=== PATIENT | female | born 1935 | race Caucasian/White ===

== ENCOUNTER 2016-09-27 23:57 | Emergency (ER) | payer OTHER, MEDICAID ==
[~2016-09-27] VITALS: Ht 162.6 cm; Wt 83.5 kg
[~2016-09-27 23:57] MED LIST: CHOL2000 PO; CYAN250L PO; FURO-150 PO; LABE100T PO; LETR2.5T3 PO; LIP10 PO; NITSL SL; OLME20TA14 PO; POTA-118 PO; SIMV20TA6 PO; SYN75 PO; VITA-285 PO
[2016-09-28 00:22] VITALS: BP 136/70; PULSE 61; RESP 18; TEMP 97.8; O2SAT 95
--- NOTE | 2016-09-28 00:22 | NUR ---
Patient to ER bed 8 to gown for evaluation. Side rails up.
--- NOTE | 2016-09-28 00:30 | NUR ---
pt in bed 8 with c/o abdominal and back pain, Dr Quinonez aware.
--- NOTE | 2016-09-28 00:32 | NUR ---
ER at bedside examining patient.
[2016-09-28 01:08] LABS: BASOPHILS % (AUTO) 0.7 % (0.0-2.0); EOSINOPHILS # (AUTO) 0.2 K/uL (0.0-0.4); EOSINOPHILS % (AUTO) 6.2 % (0.0-4.0); HEMATOCRIT 30.8 % (36-48); HEMOGLOBIN 10.5 g/dL (12.0-16.0); LYMPHOCYTES % (AUTO) 33.2 % (20.5-51.5); MEAN CORPUSCULAR HEMOGLOBIN 33 pg (27-31); MEAN CORPUSCULAR HGB CONC 34 % (32-36); MEAN CORPUSCULAR VOLUME 98 fL (79.0-98.0); MONOCYTES # (AUTO) 0.2 K/uL (0.0-1.0); NEUTROPHILS # (AUTO) 1.7 K/uL (1.8-7.7); NEUTROPHILS % (AUTO) 53.9 % (40.0-70.0); PLATELET COUNT (AUTO) 211 K/uL (130-430); RED BLOOD CELL COUNT(AUTO) 3.13 MIL/uL (4.2-6.2); RED CELL DISTRIBUTION WIDTH 15.4 % (9.0-15.0); WHITE BLOOD COUNT (AUTO) 3.1 K/uL (4.8-10.8)
[2016-09-28 01:10] LABS: ANION GAP 3 (5-15); CALCIUM 9.3 mg/dL (8.4-11.0); CHLORIDE 99 mmol/L (98-107); CREATININE 3.27 mg/dL (0.55-1.30); GLUCOSE 114 mg/dL (70-99); POTASSIUM 4.4 mmol/L (3.5-5.1); SODIUM SERUM 131 mmol/L (136-145); UREA NITROGEN, BLOOD 37 mg/dL (8-21)
[2016-09-28 01:13] LABS: ALANINE AMINOTRANSFERASE 36 U/L (12-78); ALBUMIN 3.5 g/dL (3.4-4.8); ASPARTATE AMINOTRANSFERASE 81 U/L (10-37); INR 0.9 (0.8-1.2); LIPASE 270 U/L (73-393); PROTHROMBIN TIME 10.3 SECS (9.5-12.5); TOTAL BILIRUBIN 0.7 mg/dL (0.0-1.0); TOTAL PROTEIN, SERUM 8.5 g/dL (6.4-8.3)
[2016-09-28 01:30] LABS: BILIRUBIN,URINE NEGATIVE (NEGATIVE); BLOOD, URINE 2+ (NEGATIVE); COLOR,URINE YELLOW (YELLOW); GLUCOSE,URINE NEGATIVE (NEGATIVE); KETONES,URINE NEGATIVE (NEGATIVE); LEUKOCYTE ESTERASE ,URINE 3+ (NEGATIVE); NITRITE, URINE NEGATIVE (NEGATIVE); PH,URINE 6.5 (5.0-8.0); PROTEIN URINE TRACE (NEGATIVE); UROBILINOGEN,URINE 0.2 (0.2-1.0)
--- NOTE | 2016-09-28 01:30 | NUR ---
Urine specimen collected . Results to be given to DEBBIE CASANOVA.
[2016-09-28 01:40] LABS: CLARITY/URINE HAZY (CLEAR)
[2016-09-28 01:42] LABS: BACTERIA,URINE MODERATE /HPF (None Seen); RBC,URINE 0-3 /HPF (0-3); WBC,URINE 20-50 /HPF (0-3)
[2016-09-28 01:43] LABS: MUCUS,URINE None Seen /LPF (None Seen)
[2016-09-28] MEDS ORDERED: HYDROcodone/ACETAMIN 5-325 MG TAB (NORCO/ VICODIN) PO ONE (03:00)
[2016-09-28 03:24] VITALS: BP 128/70; PULSE 89; RESP 18; TEMP 97.8; O2SAT 95
--- NOTE | 2016-09-28 03:34 | NUR ---
Patient given written and verbal discharge instructions and verbalizes understanding. ER MD discussed with patient the results and treatment provided. Patient in stable condition. ID arm band removed. Rx of cipro,norco given. Patient educated on pain management and to follow up with PMD. Pain Scale 0/10. Opportunity for questions provided and answered.
== END 2016-09-28 03:24 | disposition home or self-care (01) ==
LOC: SED 23:57
DX: N39.0 Urinary tract infection, site not specified (principal); I10 Essential (primary) hypertension; E03.9 Hypothyroidism, unspecified; Z85.3 Personal history of malignant neoplasm of breast; Z95.1 Presence of aortocoronary bypass graft; Z79.899 Other long term (current) drug therapy
CPT/HCPCS: 36415; 80053; 81000-TC; 83690-TC; 85025; 85610-TC; 85730-TC; 87086; 99285

== ENCOUNTER 2017-04-15 21:11 | Emergency (ER) | payer OTHER, MEDICAID ==
[~2017-04-15] VITALS: Ht 162.6 cm; Wt 91.2 kg
[~2017-04-15 21:11] MED LIST changes: -LABE100T PO; -SIMV20TA6 PO
[2017-04-15 21:45] VITALS: BP_SYST 123
[2017-04-15 22:34] LABS: BASOPHILS % (AUTO) 0.6 % (0.0-2.0); EOSINOPHILS # (AUTO) 0.2 K/uL (0.0-0.4); EOSINOPHILS % (AUTO) 4.2 % (0.0-4.0); HEMATOCRIT 26.7 % (36-48); HEMOGLOBIN 8.7 g/dL (12.0-16.0); LYMPHOCYTES % (AUTO) 23.3 % (20.5-51.5); MEAN CORPUSCULAR HEMOGLOBIN 35 pg (27-31); MEAN CORPUSCULAR HGB CONC 33 % (32-36); MEAN CORPUSCULAR VOLUME 106 fL (79.0-98.0); MONOCYTES # (AUTO) 0.4 K/uL (0.0-1.0); MONOCYTES % (AUTO) 10.4 % (1.7-9.3); NEUTROPHILS # (AUTO) 2.5 K/uL (1.8-7.7); NEUTROPHILS % (AUTO) 61.5 % (40.0-70.0); PLATELET COUNT (AUTO) 227 K/uL (130-430); RED BLOOD CELL COUNT(AUTO) 2.53 MIL/uL (4.2-6.2); RED CELL DISTRIBUTION WIDTH 13.5 % (9.0-15.0); WHITE BLOOD COUNT (AUTO) 4.1 K/uL (4.8-10.8)
[2017-04-15 22:44] LABS: ANION GAP 5 (5-15); CALCIUM 8.6 mg/dL (8.4-11.0); CHLORIDE 100 mmol/L (98-107); CREATININE 1.88 mg/dL (0.55-1.30); GLUCOSE 97 mg/dL (70-99); POTASSIUM 4.4 mmol/L (3.5-5.1); SODIUM SERUM 133 mmol/L (136-145); UREA NITROGEN, BLOOD 22 mg/dL (8-21)
[2017-04-15] MEDS ORDERED: NACL 0.9% 1,000 ML IV ONE (23:00)
[2017-04-16 00:32] LABS: BILIRUBIN,URINE NEGATIVE (NEGATIVE); BLOOD, URINE TRACE (NEGATIVE); CLARITY/URINE CLEAR (CLEAR); COLOR,URINE YELLOW (YELLOW); GLUCOSE,URINE NEGATIVE (NEGATIVE); KETONES,URINE NEGATIVE (NEGATIVE); LEUKOCYTE ESTERASE ,URINE NEGATIVE (NEGATIVE); NITRITE, URINE NEGATIVE (NEGATIVE); PH,URINE 7.5 (5.0-8.0); PROTEIN URINE NEGATIVE (NEGATIVE)
[2017-04-16 00:35] LABS: BACTERIA,URINE MODERATE /HPF (None Seen); RBC,URINE 0-3 /HPF (0-3)
[2017-04-16 00:50] VITALS: BP_SYST 127
== END 2017-04-16 00:50 | disposition home or self-care (01) ==
LOC: SED 21:11
DX: D64.9 Anemia, unspecified (principal); R50.9 Fever, unspecified; I10 Essential (primary) hypertension; E03.9 Hypothyroidism, unspecified; Z85.3 Personal history of malignant neoplasm of breast; Z95.1 Presence of aortocoronary bypass graft; Z90.710 Acquired absence of both cervix and uterus; Z90.49 Acquired absence of other specified parts of digestive tract; Z79.899 Other long term (current) drug therapy
CPT/HCPCS: 36415; 71010; 80048; 81000; 85025; 87086; 96360; 99285; J7030

== ENCOUNTER 2017-12-28 19:50 | Emergency (ER) | payer OTHER, MEDICAID ==
[~2017-12-28] VITALS: Ht 162.6 cm; Wt 92.1 kg
[~2017-12-28 19:50] MED LIST changes: +FEM2.5 PO; -LETR2.5T3 PO; -POTA-118 PO; +POTA10TA15 PO
[2017-12-28 19:58] VITALS: BP_SYST 156
[2017-12-28] MEDS ORDERED: IPRATROPIUM/ALBUTEROL SULFATE 3 ML AMPUL.NEB INH ONE (20:30)
[2017-12-28] MEDS ORDERED: methylPREDNISolone SOD SUCC/PF 62.5 MG/ML VIAL IM ONE (20:30)
[2017-12-28] MEDS ORDERED: LEVOFLOXACIN 500 MG TABLET PO ONE (20:30)
[2017-12-28] MEDS ORDERED: PREDNISONE 20 MG TABLET PO ONE (20:45)
[2017-12-28] MEDS ORDERED: ALBUTEROL SULFATE 0.083% 2.5 MG/3 ML VIAL.NEB INH ONE (21:15)
[2017-12-28] MEDS ORDERED: PROMETHAZINE 6.25 MG/ CODEINE 10 MG/ 5 ML PO ONE (21:15)
[2017-12-28] MEDS ORDERED: PROMETHAZINE 6.25 MG/ CODEINE 10 MG/ 5 ML ONE (21:19)
[2017-12-28 21:30] VITALS: BP_SYST 144
== END 2017-12-28 21:45 | disposition home or self-care (01) ==
LOC: SED 19:50
DX: J44.1 Chronic obstructive pulmonary disease with (acute) exacerbation (principal); I10 Essential (primary) hypertension; E03.9 Hypothyroidism, unspecified; Z79.899 Other long term (current) drug therapy; Z87.891 Personal history of nicotine dependence
CPT/HCPCS: 71045; 94640; 99284; J7512; J7613; J7620; J2930

== ENCOUNTER 2018-01-19 18:23 | Emergency (ER) | payer OTHER, MEDICAID ==
[~2018-01-19] VITALS: Ht 162.6 cm; Wt 90.7 kg
[2018-01-19 18:25] VITALS: BP_SYST 128
[2018-01-19 20:05] LABS: BASOPHILS % (AUTO) 0.7 % (0.0-2.0); EOSINOPHILS # (AUTO) 0.1 K/uL (0.0-0.4); EOSINOPHILS % (AUTO) 5.8 % (0.0-4.0); HEMATOCRIT 23.7 % (36-48); LYMPHOCYTES # (AUTO) 0.8 K/uL (1.0-5.5); LYMPHOCYTES % (AUTO) 30.7 % (20.5-51.5); MEAN CORPUSCULAR HEMOGLOBIN 36 pg (27-31); MEAN CORPUSCULAR HGB CONC 34 % (32-36); MEAN CORPUSCULAR VOLUME 105 fL (79.0-98.0); MONOCYTES # (AUTO) 0.3 K/uL (0.0-1.0); MONOCYTES % (AUTO) 11.8 % (1.7-9.3); NEUTROPHILS # (AUTO) 1.4 K/uL (1.8-7.7); PLATELET COUNT (AUTO) 242 K/uL (130-430); RED BLOOD CELL COUNT(AUTO) 2.26 MIL/uL (4.2-6.2); RED CELL DISTRIBUTION WIDTH 15.7 % (9.0-15.0); WHITE BLOOD COUNT (AUTO) 2.6 K/uL (4.8-10.8)
[2018-01-19 20:33] LABS: INR 0.9 (0.8-1.2); PROTHROMBIN TIME 9.6 SECS (9.5-12.5)
[2018-01-19 20:37] LABS: ANION GAP 6 (5-15); CALCIUM 8.9 mg/dL (8.4-11.0); CHLORIDE 102 mmol/L (98-107); GLUCOSE 99 mg/dL (70-99); POTASSIUM 4.2 mmol/L (3.5-5.1); SODIUM SERUM 136 mmol/L (136-145); UREA NITROGEN, BLOOD 21 mg/dL (8-21)
[2018-01-19 20:41] LABS: ALANINE AMINOTRANSFERASE 14 U/L (12-78); ASPARTATE AMINOTRANSFERASE 60 U/L (10-37); TOTAL BILIRUBIN 0.6 mg/dL (0.0-1.0)
[2018-01-19 21:00] VITALS: BP_SYST 126
== END 2018-01-19 21:00 | disposition home or self-care (01) ==
LOC: SED 18:23
DX: D50.0 Iron deficiency anemia secondary to blood loss (chronic) (principal); J44.9 Chronic obstructive pulmonary disease, unspecified; I10 Essential (primary) hypertension; Z90.710 Acquired absence of both cervix and uterus; Z85.3 Personal history of malignant neoplasm of breast; Z79.899 Other long term (current) drug therapy
CPT/HCPCS: 36415; 80053; 85025; 85610-TC; 85730-TC; 86886; 86900; 86901; 99284

== ENCOUNTER 2018-11-11 00:20 | Emergency (ER) | payer OTHER, MEDICAID ==
[~2018-11-11] VITALS: Ht 162.6 cm; Wt 86.6 kg
[2018-11-11 01:01] VITALS: BP_SYST 111
--- NOTE | 2018-11-11 01:12 | NUR ---
Patient to ER bed 3 to gown for evaluation. Side rails up.
--- NOTE | 2018-11-11 01:13 | NUR ---
Dr. Srivastava speaking with patient in regards to getting a CTA of abdomen. Pt reported that she has "low functioning kidneys and was told she is not able to get CT with contrast." Dr. Srivastava speaking with patient stating "it is a matter of life or , we need to see if the AAA ruptured." Pt verbally consented and signed consent form.
--- NOTE | 2018-11-11 01:13 | NUR ---
Pt is AAO x 4 and ambulatory c/o right lower back pain that started yesterday and has increasingly gotten worse. Pt appears short of breath, O2 saturation on room air is 98%. Pt states "sometimes the pain radiates to abdomen." Pt denies dysuria and diarrhea. Per pt, she has a hx of AAA. Pt is slightly diaphoretic and states pain is 10/10. No other injuries/complaints per patient or noted.
--- NOTE | 2018-11-11 01:15 | NUR ---
Kane Srivastava at bedside examining patient.
[2018-11-11] MEDS ORDERED: ONDANSETRON HCL 4 MG/2 ML VIAL IVP ONE (01:30)
[2018-11-11] MEDS ORDERED: MORPHINE 4 MG/ML INJ. SYRINGE IVP ONE (01:30)
--- NOTE | 2018-11-11 01:40 | NUR ---
Noted pt's BP was 94/69, HR 65 and O2 at 90%. Dr. Srivastava at bedside and verbally ordered Nasal Canula 2L and a liter of NS.
--- NOTE | 2018-11-11 01:49 | NUR ---
Ultrasound at bedside. Pt tolerated well.
[2018-11-11 01:50] LABS: BASOPHILS % (AUTO) 0.7 % (0.0-2.0); EOSINOPHILS # (AUTO) 0.4 K/uL (0.0-0.4); EOSINOPHILS % (AUTO) 5.8 % (0.0-4.0); HEMATOCRIT 29.4 % (36-48); HEMOGLOBIN 9.6 g/dL (12.0-16.0); LYMPHOCYTES # (AUTO) 2.2 K/uL (1.0-5.5); LYMPHOCYTES % (AUTO) 31.7 % (20.5-51.5); MEAN CORPUSCULAR HEMOGLOBIN 30 pg (27-31); MEAN CORPUSCULAR HGB CONC 33 % (32-36); MEAN CORPUSCULAR VOLUME 91 fL (79.0-98.0); MONOCYTES # (AUTO) 0.5 K/uL (0.0-1.0); MONOCYTES % (AUTO) 7.7 % (1.7-9.3); NEUTROPHILS # (AUTO) 3.8 K/uL (1.8-7.7); NEUTROPHILS % (AUTO) 54.1 % (40.0-70.0); PLATELET COUNT (AUTO) 259 K/uL (130-430); RED BLOOD CELL COUNT(AUTO) 3.21 MIL/uL (4.2-6.2); RED CELL DISTRIBUTION WIDTH 15.4 % (9.0-15.0)
[2018-11-11 01:54] LABS: ANION GAP 12 (5-15); CALCIUM 9.1 mg/dL (8.4-11.0); CHLORIDE 97 mmol/L (98-107); CREATININE 2.28 mg/dL (0.55-1.30); GLUCOSE 219 mg/dL (70-99); POTASSIUM 4.2 mmol/L (3.5-5.1); SODIUM SERUM 132 mmol/L (136-145); UREA NITROGEN, BLOOD 27 mg/dL (8-21)
[2018-11-11 01:59] LABS: ALANINE AMINOTRANSFERASE 23 U/L (12-78); ALBUMIN 3.3 g/dL (3.4-4.8); ASPARTATE AMINOTRANSFERASE 87 U/L (10-37); LIPASE 196 U/L (73-393); TOTAL BILIRUBIN 0.6 mg/dL (0.0-1.0)
[2018-11-11] MEDS ORDERED: fentaNYL CITRATE/PF 100 MCG/2 ML AMP IVP ONE (02:15)
--- NOTE | 2018-11-11 02:23 | NUR ---
Pt went to radiology in stable condition. Nurse accompanied patient and radiologist.
[2018-11-11] MEDS ORDERED: IOHEXOL 350 mgI/mL, 150 ML INFUS..BTL IV ONE (02:26)
--- NOTE | 2018-11-11 02:33 | NUR ---
Medication was given, pt tolerated well. No adverse reaction, will continue to monitor.
--- NOTE | 2018-11-11 02:37 | NUR ---
Pt returned from radiology in stable condition.
[2018-11-11] MEDS ORDERED: NACL 0.9% 1,000 ML IV ONE (03:00)
[2018-11-11] MEDS ORDERED: ONDANSETRON HCL 4 MG/2 ML VIAL ONE ×2 (03:00→03:45)
--- NOTE | 2018-11-11 03:11 | NUR ---
Pt sleeping comfortably in bed. No acute distress, will continue to monitor.
--- NOTE | 2018-11-11 03:30 | NUR ---
Consent signed per patient and Dr. Srivastava agreeing to administration of blood. Blood has been type and crossmatched. Blood sent from blood bank. Information on unit of blood checked against patient wristband at bedside by two nurses. All information matches. Patient or responsible alliance party informed of potential complications associated with blood transfusion. Informed of possible transfusion reaction symptoms. Aware of need to notify nurse at once of itching, shortness of breath, flushing, feeling of impending doom, or other symptoms not previously present. Vital signs taken within 5 minutes prior to initiation of transfusion. RN will remain with patient for first 15 minutes of transfusion at which time vital signs will be re-assessed.
--- NOTE | 2018-11-11 03:33 | NUR ---
Pt woke up and stated she feels nauseous. Pt was given emesis bag. Transfusion stopped. Dr. Srivastava aware. Per Dr. Srivastava, "continue transfusion, and give 4 mg of Zofran IVP."
--- NOTE | 2018-11-11 03:34 | NUR ---
Blood transfusion continued.
--- NOTE | 2018-11-11 03:45 | NUR ---
Blood transufion was stopped. Per [facility], they cannot take patient with drips because they need CCRT at bedside. Dr. Srivastava notified. Per Dr. Srivastava, stop transfusion and take patient to [facility].
[2018-11-11 03:50] VITALS: BP_SYST 142
--- NOTE | 2018-11-11 03:50 | NUR ---
patient to be transferred to [facility]. Is being transferred due to higher level of care. Receiving facility has accepting physician and available space. ER physician has signed transfer form. Patient or responsible green party has agreed to transfer and signed form. Patient belongings inventoried and will be sent with patient. Copy of nursing notes, lab reports, EKG, Physicians Orders and X-rays to be sent with patient. Report called to Yuli at receiving facility. Receiving physician is Dr. Fishman. [facility] service has been called for transfer.
== END 2018-11-11 03:50 | disposition short-term general hospital (02) ==
LOC: SED 00:20
DX: I71.3 Abdominal aortic aneurysm, ruptured (principal); J44.9 Chronic obstructive pulmonary disease, unspecified; E03.9 Hypothyroidism, unspecified; I10 Essential (primary) hypertension; Z85.3 Personal history of malignant neoplasm of breast; Z79.899 Other long term (current) drug therapy
CPT/HCPCS: 36415; 72191; 74175; 76700; 80053; 83690; 85025; 86886; 86900; 86901; 86920; 96374; 96375; 99291; J2270; J2405; J3010; J7030; P9021; Q9967; 99285